=== PATIENT | female | born 1980 | race Caucasian/White ===

== ENCOUNTER 2018-04-08 08:42 | Emergency (ER) | payer MEDICAID ==
[2018-04-08 09:38] LABS: URINE BLOOD (Dip) POC Trace-intact (NEGATIVE); URINE GLUCOSE (Dip) POC Negative (NEGATIVE); URINE KETONES (Dip) POC Negative (NEGATIVE); URINE LEUKOCYTE EST (Dip) POC Negative (NEGATIVE); URINE NITRITE (Dip) POC Negative (NEGATIVE); URINE TOTAL PROTEIN POC Negative (NEGATIVE)
[2018-04-08] MEDS: KETOROLAC 60 MG INJ IM (09:48)
== END 2018-04-08 09:53 | disposition home or self-care (01) ==
LOC: FTE 08:42
DX: M54.5 Low back pain (principal)
CPT/HCPCS: 81003; 81025; 96372; 99284-25

== ENCOUNTER 2018-10-21 08:17 | Emergency (ER) | payer MEDICAID ==
[2018-10-21] MEDS: ALBUTEROL 0.083% (NEB) 2.5 MG/3 ML AMP NEB (08:54)
[2018-10-21] MEDS: IPRATROPIUM (NEB) 0.5 MG/2.5 ML AMP NEB (08:54)
== END 2018-10-21 09:23 | disposition home or self-care (01) ==
LOC: FTE 08:17
DX: J45.20 Mild intermittent asthma, uncomplicated (principal)
CPT/HCPCS: 94664; 99283-25